=== PATIENT | male | born 1980 | race Caucasian/White ===

== ENCOUNTER 2018-08-29 02:52 | Emergency (ER) | payer OTHER, MEDICAID ==
[2018-08-29 03:01] VITALS: RESP 18; O2SAT 100; BMI 25.9
[2018-08-29] MEDS ORDERED: Naproxen 550 mg Tab PO STA (03:19)
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
[2018-08-29 05:20] VITALS: BP 128/86; PULSE 78; TEMP 97.8
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
== END 2018-08-29 04:45 | disposition home or self-care (01) ==
LOC: ED 02:52
DX: Z04.1 Encounter for examination and observation following transport accident (principal); V49.9XXA Car occupant (driver) (passenger) injured in unspecified traffic accident, initial encounter